=== PATIENT | male | born 1995 | race Caucasian/White ===

== ENCOUNTER 2018-01-27 09:59 | Emergency (ER) | payer OTHER ==
[~2018-01-27] VITALS: Ht 185.4 cm; Wt 74.8 kg
[2018-01-27 10:06] VITALS: BP 143/67
[2018-01-27] MEDS ORDERED: ALUMINUM HYD/MAG/SIMETHICONE 30 ML, DICYCLOMINE HCL LIQUID 20 MG, LIDOCAINE VISCOUS 2% ... PO ONE ×3 (12:10)
[2018-01-27] MEDS ORDERED: ONDANSETRON 4 MG ODT SL PRN (12:10)
[2018-01-27] MEDS ORDERED: FAMOTIDINE 20 MG TAB PO ONE (12:10)
[2018-01-27 13:51] VITALS: BP 128/55
== END 2018-01-27 13:51 | disposition home or self-care (01) ==
LOC: MED 09:59
DX: K29.70 Gastritis, unspecified, without bleeding (principal)
CPT/HCPCS: 99284; S0119